=== PATIENT | male | born 1995 | race Caucasian/White ===

== ENCOUNTER 2017-03-25 12:14 | Outpatient (CLI) | payer BC ==
--- NOTE | 2017-03-25 13:03 | RAD ---
TWO VIEWS CHEST: HISTORY: Intermittent aching left chest pain. COMPARISON: 11/20/2016 FINDINGS: Two views of the chest show normal sized cardiomediastinal silhouette. There is no evidence of consol idation, mass, or pleural effusion. The bones are unremarkable. IMPRESSION: No evidence of acute cardiopulmonary disease. POS: [facility]
== END 2017-03-25 12:15 | disposition home or self-care (01) ==
LOC: SCSRAD 12:14
PROVIDERS: ATTEND Family Medicine
DX: R07.9 Chest pain, unspecified (principal)
CPT/HCPCS: 71046

== ENCOUNTER 2017-04-08 09:25 | Outpatient (CLI) | payer BC ==
--- NOTE | 2017-04-08 13:37 | CT ---
CT THORAX WITH IV CONTRAST: 04/08/2017 HISTORY: Left-sided chest pain/aching for several months. The patient states, this weekend, developed shortne ss of breath along with the left-sided aching chest pain. COMPARISON: None available. FINDINGS: The lungs are clear. There is no pleural effusion, pulmonary nodule, or mass. The thoracic aorta is normal in caliber without evidence of an aortic dissection. There is no evidence of lymphadenopathy . The visualized upper abdomen has a normal CT appearance. IMPRESSION: No acute findings. POS: [facility]
== END 2017-04-08 09:26 | disposition home or self-care (01) ==
LOC: SCSCT 09:25
PROVIDERS: ATTEND Family Medicine
DX: R07.9 Chest pain, unspecified (principal)
CPT/HCPCS: 71260